=== PATIENT | male | born 1995 | race Caucasian/White ===

== ENCOUNTER 2021-08-25 14:29 | Emergency (ER) | payer OTHER ==
[~2021-08-25] VITALS: Ht 165.1 cm; Wt 77.2 kg
[2021-08-25] MEDS ORDERED: BACTRIM DS1 TAB PO (15:10)
[2021-08-25 15:24] VITALS: BP 138/80
== END 2021-08-25 15:24 | disposition home or self-care (01) | DRG 605 ==
LOC: ED 14:29
DX: S41.132A Puncture wound without foreign body of left upper arm, initial encounter (principal); F17.210 Nicotine dependence, cigarettes, uncomplicated; W26.8XXA Contact with other sharp object(s), not elsewhere classified, initial encounter; Y93.H3 Activity, building and construction; Y92.007 Garden or yard of unspecified non-institutional (private) residence as the place of occurrence of the external cause